=== PATIENT | male | born 1990 | race Caucasian/White ===

== ENCOUNTER 2023-12-06 21:34 | Emergency (ER) | payer OTHER ==
[~2023-12-06] VITALS: Ht 180.3 cm; Wt 83.9 kg
[~2023-12-06 21:34] MED LIST: KEFLEX500 MG PO; MEDROL DOSEPAK4 MG PO; TAGAMET400 MG PO
[2023-12-06] MEDS ORDERED: EPIPEN 2-P0.3 MG/0.3 IJ ×2 (21:47→23:09)
[2023-12-06] MEDS ORDERED: FAMOTIDINE 50 ML IV ONE (22:00)
[2023-12-06] MEDS ORDERED: diphenhydrAMINE hydrochloride 50 MG/ML VIAL IV ONE (22:00)
[2023-12-06] MEDS ORDERED: methylPREDNISolone sod succ 125 MG VIAL IV ONE (22:00)
[2023-12-06] MEDS ORDERED: PREDNISONE20 M1 PO (22:15)
[2023-12-06] MEDS ORDERED: SODIUM CHLORIDE 0.9% 1,000 ML IV ONE ×2 (23:05→23:16)
[2023-12-06] MEDS ORDERED: Dexamethasone Sodium Phospha 20 MG/5 ML VIAL IV ONE (23:10)
[2023-12-07] MEDS ORDERED: ZYRTEC10 M2 PO (00:28)
== END 2023-12-07 00:38 | disposition home or self-care (01) ==
LOC: ED 21:34
DX: Z91.030 Bee allergy status (principal); Z79.899 Other long term (current) drug therapy; T63.441A Toxic effect of venom of bees, accidental (unintentional), initial encounter; Y92.89 Other specified places as the place of occurrence of the external cause

== ENCOUNTER 2024-09-06 18:05 | Emergency (ER) | payer OTHER ==
[~2024-09-06] VITALS: Ht 180.3 cm; Wt 83.9 kg
[~2024-09-06 18:05] MED LIST changes: +EPIPEN 2-P0.3 MG/0.3 IJ; +PREDNISONE20 M1 PO; +ZYRTEC10 M2 PO
[2024-09-06] MEDS ORDERED: AMOX-CLAV 875-1 EACH PO (18:44)
[2024-09-06] MEDS ORDERED: Lidocaine Hydrochloride 2% 10 ML AMP SC ONE (18:45)
[2024-09-06] MEDS ORDERED: IBUPROFEN 800 MG TAB PO ONE (18:45)
[2024-09-06] MEDS ORDERED: ceFAZolin sodium 1 GM in SYRINGE INFUSION 10 ML IV ONE (18:45)
[2024-09-06] MEDS ORDERED: ceFAZolin sodium/sodium chlor 10 ML IV ONE (19:00)
[2024-09-06] MEDS ORDERED: Ondansetron Hydrochloride 4 MG/2 ML VIAL IV ONE (19:25)
[2024-09-06] MEDS ORDERED: PERCOCET 5-3251 EACH PO (20:04)
[2024-09-06] MEDS ORDERED: Motrin,Rufen800 MG PO (20:04)
[2024-09-06] MEDS ORDERED: CEPHALEXIN500 M1 PO (20:04)
[2024-09-06] MEDS ORDERED: Acetaminophen/Oxycodone 5 MG/325 MG TABLET PO ONE (20:10)
[2024-09-06] MEDS ORDERED: Tdap Vaccine 0.5 ML SYR (Adult Vaccine) IM ONE (20:10)
== END 2024-09-06 19:32 | disposition home or self-care (01) ==
LOC: ED 18:05
DX: S62.630A Displaced fracture of distal phalanx of right index finger, initial encounter for closed fracture (principal); S62.632A Displaced fracture of distal phalanx of right middle finger, initial encounter for closed fracture; S61.312A Laceration without foreign body of right middle finger with damage to nail, initial encounter; Z91.030 Bee allergy status; Z79.899 Other long term (current) drug therapy; V86.56XA Driver of dirt bike or motor/cross bike injured in nontraffic accident, initial encounter; Y93.I9 Activity, other involving external motion; Y92.488 Other paved roadways as the place of occurrence of the external cause; Y99.8 Other external cause status